=== PATIENT | female | born 1965 | race Caucasian/White ===

== ENCOUNTER 2017-07-26 11:13 | Emergency (ER) | payer OTHER ==
[~2017-07-26] VITALS: Ht 167.6 cm; Wt 61.2 kg
[2017-07-26 11:38] VITALS: BP 136/85
[2017-07-26] MEDS ORDERED: IBUPROFEN 600 MG TABLET PO ONE ×2 (12:10→12:30)
== END 2017-07-26 12:27 | disposition home or self-care (01) ==
LOC: ER 11:15
DX: S63.502A Unspecified sprain of left wrist, initial encounter (principal); S50.02XA Contusion of left elbow, initial encounter; F17.200 Nicotine dependence, unspecified, uncomplicated; V79.88XA Bus occupant (driver) (passenger) injured in other specified transport accidents, initial encounter; Y93.89 Activity, other specified; Y92.89 Other specified places as the place of occurrence of the external cause; Y99.8 Other external cause status
CPT/HCPCS: 73080-TC; 73110; A4606; Z7610